=== PATIENT | male | born 2000 | race Caucasian/White ===

== ENCOUNTER 2023-06-10 18:13 | Emergency (ER) | payer SELFPAY ==
[~2023-06-10] VITALS: Ht 170.2 cm; Wt 59.0 kg
[2023-06-10] MEDS ORDERED: POLY15DR31 TP (18:39)
[2023-06-10] MEDS ORDERED: VANORAL GT (18:39)
[2023-06-10] MEDS ORDERED: BACL5TAB GT (18:39)
[2023-06-10] MEDS ORDERED: ASCO500W7 GT (18:39)
[2023-06-10] MEDS ORDERED: CHLO473M12 PO (18:39)
[2023-06-10] MEDS ORDERED: HYDR-3917 GT (18:39)
[2023-06-10] MEDS ORDERED: MUC20RT INH (18:39)
[2023-06-10] MEDS ORDERED: LOVI30 SQ (18:39)
[2023-06-10] MEDS ORDERED: MULT1CAP34 GT (18:39)
[2023-06-10] MEDS ORDERED: METO25TA6 GT (18:39)
[2023-06-10] MEDS ORDERED: ALBU2.5V7 INH (18:39)
[2023-06-10] MEDS ORDERED: ACET325T53 GT (18:39)
[2023-06-10 18:42] VITALS: BP_SYST 138; PULSE 119; RESP 19; TEMP 98.8; O2SAT 95
[2023-06-10 18:49] VITALS: TEMP 97.3
[2023-06-10] MEDS ORDERED: NACL 0.9% 1,000 ML IV ONE (19:00)
[2023-06-10 20:19] LABS: BASOPHILS % (AUTO) 0.3 % (0.0-2.0); EOSINOPHILS # (AUTO) 0.2 K/uL (0.0-0.4); EOSINOPHILS % (AUTO) 3.5 % (0.0-4.0); HEMATOCRIT 35.1 % (36-54); HEMOGLOBIN 11.5 g/dL (14.0-18.0); LYMPHOCYTES # (AUTO) 1.2 K/uL (1.0-5.5); LYMPHOCYTES % (AUTO) 17.7 % (20.5-51.5); MEAN CORPUSCULAR HEMOGLOBIN 27 pg (27-31); MEAN CORPUSCULAR HGB CONC 33 % (32-36); MEAN CORPUSCULAR VOLUME 83 fL (79.0-98.0); MONOCYTES # (AUTO) 1.2 K/uL (0.0-1.0); MONOCYTES % (AUTO) 17.2 % (1.7-9.3); NEUTROPHILS # (AUTO) 4.2 K/uL (1.8-7.7); NEUTROPHILS % (AUTO) 61.3 % (40.0-70.0); PLATELET COUNT (AUTO) 280 K/uL (130-430); RED BLOOD CELL COUNT(AUTO) 4.24 MIL/uL (4.2-6.2); RED CELL DISTRIBUTION WIDTH 14.1 % (9.0-15.0); WHITE BLOOD COUNT (AUTO) 6.9 K/uL (4.8-10.8)
[2023-06-10 20:29] LABS: ALANINE AMINOTRANSFERASE 44 U/L (12-78); ANION GAP 8 (5-15); ASPARTATE AMINOTRANSFERASE 16 U/L (10-37); CALCIUM 8.5 mg/dL (8.4-11.0); CARBON DIOXIDE 27 mmol/L (23-29); CHLORIDE 99 mmol/L (98-107); CREATININE 0.33 mg/dL (0.55-1.30); GFR AFRICAN AMERICAN 428 mL/min (>90); GFR NON AFRICAN-AMERICAN 354 mL/min (>90); GLUCOSE 99 mg/dL (74-106); POTASSIUM 3.7 mmol/L (3.5-5.1); SODIUM SERUM 134 mmol/L (136-145); TOTAL BILIRUBIN 0.5 mg/dL (0.0-1.0); TOTAL PROTEIN, SERUM 6.8 g/dL (6.4-8.3); UREA NITROGEN, BLOOD 9 mg/dL (8-21)
[2023-06-10 23:45] VITALS: BP_SYST 106; PULSE 113; RESP 22; O2SAT 98
== END 2023-06-11 00:07 | disposition home or self-care (01) ==
LOC: SED 18:13
DX: H57.89 Other specified disorders of eye and adnexa (principal); I10 Essential (primary) hypertension; Z87.820 Personal history of traumatic brain injury; Z79.899 Other long term (current) drug therapy
CPT/HCPCS: 99285; 96360; 70460; 71045; 80053; 85025; 85610; 85730; 87040; 84484; 36415; 93005; 76376; 83605; 70481; J7030